=== PATIENT | male | born 1945 | race Caucasian/White ===

== ENCOUNTER 2016-09-06 12:45 | Observation (INO) | payer MEDICARE, BC ==
--- NOTE | ~2016-09-06 | CN ---
Consultation Report [facility] [address] [place]. [address] NAME: KATELYN GAMBINO JR : 43 STATUS : ADM Alex PAT#: [id number] AGE: 71 ADM/REG DATE : 09/06/16 MR#: [id number] REPORT SERV DATE: 09/06/16 DICTATED BY: VELASQUEZ ARGUETA DATE: 09/06/16 REPORT STATUS : Draft TRANSCRIBED BY: MODL DATE: 09/06/16 CARDIOLOGY CONSULTATION DATE OF CONSULTATION: 09/06/2016 REASON FOR CONSULTATION: Chest pain, possible syncope. HISTORY OF PRESENT ILLNESS: Mr. Gambino is a very pleasant 71-year-old male. We have been asked to see by the Hospitalist Service for evaluation of chest pain and a presyncopal episode. He has no established cardiovascular history, but does have hypertension and diabetes. He was hospitalized in 02/2016 for an episode of pancreatitis. He was working out with his in the gym this morning and apparently experienced a transient alteration of consciousness. Specifically, he became nonverbal and stared off to the side as his tried to gain his attention. He was placed in a seated position and never lost consciousness or posture based on his 's report, but she feels that he was altered for over 5 minutes without being verbal. She poured water on his head and then subsequently placed orange slices into his mouth thinking he was hypoglycemic. He eventually regained spontaneous speech and has very limited memory of these events. Shortly after arrival to the ER, he experienced some mild left-sided chest pain, which resolved spontaneously. We have been asked to see him in this context. He denies any palpitations, presyncope, or syncope previously. He was previously seen by Dr. Anderson for evaluation of left lower quadrant pain, apparently had a stress test that was unremarkable. He has no history of neurologic disease or seizure disorder. There was no loss of bowel or bladder function and no tonoclonic activity. He has never had a syncopal event prior. He has not had any anginal symptoms in the last several days, has not had any discomfort with activity. He admits that he was exerting himself more than usual during this morning. MEDICATIONS: Reviewed include aspirin, Coreg, vitamin D, vitamin B12, Benadryl, and Flonase. ALLERGIES: TO MORPHINE, HYDROCHLOROTHIAZIDE, VALSARTAN, AND TRULICITY. FAMILY HISTORY: Noncontributory. SOCIAL HISTORY: Rare alcohol use. No tobacco. No illicits. REVIEW OF SYSTEMS: Per HPI, otherwise, negative. PHYSICAL EXAMINATION: VITAL SIGNS: Heart rate 60, blood pressure 120/80, and respiratory rate 16. Consultation Report [facility] [address] [place] [address] NAME: KATELYN GAMBINO JR : 43 STATUS : ADM Alex PAT#: [id number] AGE: 71 ADM/REG DATE : 09/06/16 MR#: [id number] REPORT SERV DATE: 09/06/16 DICTATED BY: VELASQUEZ ARGUETA DATE: 09/06/16 REPORT STATUS : Draft TRANSCRIBED BY: DARCY DATE: 09/06/16 GENERAL: Appears comfortable. HEENT: Sclerae anicteric; mucous membranes moist. NECK: No JVD. Thyroid not tender or enlarged CARDIOVASCULAR: Regular rhythm with normal S1/S2. No murmurs, rubs, or gallop. PULMONARY: Lung cole CTA. ABDOMEN: Soft, nontender, no masses EXTREMITIES: Warm, no edema. NEUROLOGIC: Grossly without deficits LABS: Reviewed. Hemoglobin 13.3 and platelets 95. Creatinine 1.28. Troponin less than 0.02. Chest x-ray, unremarkable. EKG, sinus rhythm. No ST-segment abnormalities. IMPRESSION/RECOMMENDATIONS: 1. Transient alteration of consciousness: Etiology is unclear. Considerations include presyncope, absence seizure, hypoglycemia. None of these are highly suggested by the history and it is certainly likely that the patient's increased activity played some role. If he truly did have altered consciousness for 5 minutes, I question whether this was a neurologic event. His EKG and his initial troponin very reassuring. I do not hear any murmur on exam, but we can rule out any underlying structural heart disease with an echocardiogram and we will plan to do that tomorrow as we await the followup troponin. I will go and ask Neurology to evaluate him, but anticipate if his workup is negative, and there are no events on telemetry, then he can be discharged soon if there is no recurrence. Thank you for your consultation. We will follow with you. KALANI Velasquez Argueta MD / [id number] CC: Suhas Clarke Jr, MD Annesofie Dubeck-Brooks, M.D.
--- NOTE | ~2016-09-06 | CN ---
Consultation Report [facility] [address] [place]. [address] NAME: KATELYN GAMBINO JR : 43 STATUS : ADM Alex PAT#: [id number] AGE: 71 ADM/REG DATE : 09/06/16 MR#: [id number] REPORT SERV DATE: 09/07/16 DICTATED BY: LUCIE CROSS DATE: 09/07/16 REPORT STATUS : Draft TRANSCRIBED BY: DARCY DATE: 09/07/16 NEUROLOGY CONSULTATION DATE OF CONSULTATION: 09/07/2016 REASON FOR CONSULTATION: Syncopal episode. HOSPITALIST: Suhas Clarke Jr., M.D. HISTORY OF PRESENT ILLNESS: The patient is a 71-year-old male, who was out at the gym yesterday morning with his and they were doing a stability class. In this class, they do stretching, weightlifting, and aerobics. He and his have been in the class for approximately 55 minutes, when she looked back and noticed that her "did not look right." He was sitting on a mat and his face was pale, and he was not responding. He was staring off into space. She called his name four times and he did not respond. She got up off the mat, took her water and threw it in his face. He still did not respond. She called for "help from several other exercisers," got up and poured water on him. He still did not respond. He finally started to slowly respond after approximately five minutes. According to the , he did not demonstrate any tonic-clonic movement nor was he incontinent of urine and stool. He did not bite his tongue. When he finally did awake fully, he was fairly alert. He did not complain of being excessively drowsy nor did he napped throughout the day. He did state that he felt somewhat weak. When the patient was questioned about the event, he stated that he did not remember much about it; however prior to having his "episode," he did remember that he started to develop tunnel vision and that was all he remembered until his was waking him up. PAST MEDICAL HISTORY: Diabetes mellitus type 2, ileus, history of pancreatitis, hypertension, obesity, and history of tobacco abuse in the past. PAST SURGICAL HISTORY: Colectomy, cholecystectomy, appendectomy, prostatectomy, and neck fibroma removal. HOME MEDICATION LIST: Includes aspirin 81 mg daily, Coreg 50 mg twice a day, vitamin D3 1000 units daily, Coenzyme Q10 100 mg daily, vitamin B12 250 mcg daily, Benadryl 25 mg at bedtime, Flonase nasal spray one spray each nostril daily, Amaryl 4 mg daily, Xyzal 5 mg at bedtime, Mevacor 20 mg at bedtime, metformin 1000 mg twice a day, and fish oil 1200 mg daily. ALLERGIES: MORPHINE, HYDROCHLOROTHIAZIDE, NOVOCAINE, VALSARTAN, AND TRULICITY. SOCIAL HISTORY: The patient is . He has two children. 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 He is a remote smoker. He rarely drinks alcohol and denies use of illicit drugs. Consultation Report [address] [place]. [address] NAME: KATELYN GAMBINO JR : 43 STATUS : ADM Alex PAT#: [id number] AGE: 71 ADM/REG DATE : 09/06/16 MR#: [id number] REPORT SERV DATE: 09/07/16 DICTATED BY: LUCIE CROSS DATE: 09/07/16 REPORT STATUS : Draft TRANSCRIBED BY: DARCY DATE: 09/07/16 FAMILY HISTORY: The patient's mother at 76 from an aneurysm. His father at the age of 42 from heart disease. His son at the age of 46 from an DC. REVIEW OF SYSTEMS: See HPI for pertinent positives. PHYSICAL EXAMINATION: VITAL SIGNS: The patient is a 71-year-old male, who stands 5 foot 11 inches. He is currently afebrile. Heart rate 58, respiratory rate 16, O2 saturations on room air 96%, blood pressure 130/76. NEURO: He is alert, oriented x4, pleasant, communicates appropriately. Pupils are 3 mm. PERRLA. Cranial nerves 2 through 12 are intact except the patient reports slight diminished sensation on the left side of his face. He can move all extremities x4. Mlprdp-ai-dizy, no ataxia. Qnat-qg-xudl, no ataxia. There is no pronator drift. Upper extremity strength 5/5. Upper DTRs 1+ bilaterally. Reported slight diminished sensation on the left compared to the right. Lower extremity strength 4/5 bilaterally. Patellar reflexes 2+ bilaterally. Downgoing toes. Again, reported diminished sensation on the left compared to the right. The patient can get out of the bed. He has good locomotion. Gait without ataxia. Romberg negative. NECK: No carotid bruits, JVD, or thyromegaly. CHEST: Lung sounds are clear. CARDIAC: Regular rate and rhythm. LABORATORY DATA: CBC is normal. BMP relatively normal. Potassium 3.7. Cholesterol values are within normal range. A1c 6.8 and troponin negative x4. ASSESSMENT/PLAN: Episode of altered consciousness, etiology unknown. Differential diagnosis would include: 1. a. Orthostasis. At this point, the staff will check orthostatic vital signs every shift recording the heart rate and blood pressure lying, sitting, and standing. b. Hypoglycemia. Again, the staff will be checking blood sugars. c. An arrhythmia. The patient is on the cardiac monitor technician. Cardiology is managing this. d. Possible seizure, however, this is an atypical presentation. The patient will undergo an MRI of the brain, MRA of the head and neck, electroencephalogram, and additional lab work will be checked. Thank you again for including us in consultation. We will continue to follow with you. MARYANNE/DARCY Lucie Argueta Consultation Report [address] [address] NAME: KATELYN GAMBINO Aubrey MARINA : 43 STATUS : ADM Alex PAT#: [id number] AGE: 71 ADM/REG DATE : 09/06/16 MR#: [id number] REPORT SERV DATE: 09/07/16 DICTATED BY: LUCIE CROSS DATE: 09/07/16 REPORT STATUS : Draft TRANSCRIBED BY: MODL DATE: 09/07/16 KAITLYNN Cross / [id number] CC: Suhas Clarke Jr, MD Annesofie Dubeck-Brooks, M.D. William John Fritsch, Jr, MD
--- NOTE | ~2016-09-06 | DS ---
Discharge Summary [facility] [address] [place]. [address] NAME: KATELYN GAMBINO JR : 43 STATUS : DIS Alex PAT#: [id number] AGE: 71 ADM/REG DATE : 09/06/16 MR#: [id number] REPORT SERV DATE: 09/09/16 DICTATED BY: JAVY ARAMBULA DATE: 09/08/16 REPORT STATUS : Draft TRANSCRIBED BY: MODDavid DATE: 09/08/16 ADMISSION DATE: 09/06/2016 DISCHARGE DATE: 09/08/2016 PROCEDURES DONE: 1. On 09/06/2016, chest x-ray, no acute cardiopulmonary abnormality. 2. On 09/07/2016, MRA of the head shows normal intracranial MRA. 3. MRA of the neck, no significant brachiocephalic stenosis of the carotid, vertebral, or subclavian system identified. 4. On 09/07/2016, MRI of the brain, the patient had some small vascular injuries. The largest one involving left occipital/CLERK OPERATOR distribution. No acute infarct or bleed seen. Sinuses, inner ear structures appear grossly normal and symmetric. 5. On 09/08/2016, 2D echo: Normal left ventricular systolic function with calculated EF of 55 to 60%. Normal right ventricular chamber size and systolic function. No evidence of significant valvular regurgitation or stenosis. Agitated saline contrast study, had poor opacification, however, there is no clear evidence of atrial septal defect or patent foramen ovale. No previous study available. 6. On 09/08/2016, EEG obtained during awake and drowsy state may be considered within normal limits. No focal abnormalities, seizure activity, or seizure discharge was otherwise noted. CONSULTS: 1. Neurology with nurse practitioner, Melba Olivera. 2. Cardiology consult with Dr. Argueta. REASON FOR ADMISSION: Chest pain. HISTORY OF HOSPITAL STAY: A 71-year-old white male with past medical history of diabetes type 2, hypertension, history of ileus, history of pancreatitis, presenting with chest pain x1 day. The patient was initially doing a workout at the [facility] when he had a syncopal episode with a noted low blood sugar. The patient came to the ER for further evaluation and treatment. The patient was having chest pain status post syncopal episode. The patient was admitted for further evaluation and treatment of chest pain. Cardiology was consulted. A 2D echo was done which was within normal limits. In addition, cardiac enzymes, and EKG shows no significant changes. Cardiology was concerned whether or not this syncopal episode was seizure in nature. The patient was seen by Neurology for further evaluation and treatment. EEG was done which is normal. MRI and MRA of the head and neck were all within normal limits. Neurology felt that the patient's syncopal episode may be secondary to hypoglycemic episode. DISPOSITION: The patient is feeling fine with no complaint. ACTIVITIES: As tolerated. DIET: Diabetic. Discharge Summary [address] [address] NAME: KATELYN GAMBINO JR : 43 STATUS : DIS Alex PAT#: [id number] AGE: 71 ADM/REG DATE : 09/06/16 MR#: [id number] REPORT SERV DATE: 09/09/16 DICTATED BY: JAVY ARAMBULA DATE: 09/08/16 REPORT STATUS : Draft TRANSCRIBED BY: DARCY DATE: 09/08/16 INSTRUCTIONS UPON DISCHARGE: The patient is to follow up with primary care physician within two weeks' time. MEDICATIONS UPON DISCHARGE: 1. Aspirin 81 mg p.o. at bedtime. 2. Lovastatin 20 mg p.o. at bedtime. 3. Coreg 50 mg p.o. b.i.d. 4. Vitamin B12, 500 mcg p.o. at bedtime. 5. Vitamin D 1000 units p.o. daily. 6. Coenzyme Q10, 100 mg p.o. daily. 7. Flonase one spray each nostril daily. 8. Amaryl 4 mg p.o. daily. 9. Xyzal 5 mg p.o. at bedtime. 10.Fish oil 1200 mg p.o. daily. 11.Metformin 1000 mg p.o. b.i.d. 12.Benadryl 25 mg p.o. at bedtime. DIAGNOSES UPON DISCHARGE: 1. Chest pain, noncardiac. 2. Syncopal episode secondary to hypoglycemic episode. 3. Diabetes type 2. 4. Hypertension. FARIBA/DARCY Javy Arambula MD / [id number] CC: Suhas Clarke Jr, MD Annesofie Dubeck-Brooks, M.D.
--- NOTE | ~2016-09-06 | HP ---
History And Physical [place] [id number] [facility] [place]. [address] NAME: KATELYN GAMBINO JR : 43 STATUS : ADM Alex PAT#: [id number] AGE: 71 ADM/REG DATE : 09/06/16 MR#: [id number] REPORT SERV DATE: 09/06/16 DICTATED BY: JAVY ARAMBULA DATE: 09/06/16 REPORT STATUS : Draft TRANSCRIBED BY: MODDavid DATE: 09/06/16 DATE OF ADMISSION: 09/06/2016 REASON FOR ADMISSION: Chest pain. HISTORY OF PRESENT ILLNESS: A 71-year-old white male with past medical history of diabetes type 2, hypertension, history of ileus, and history of pancreatitis, presenting with chest pain x1 day. Apparently, the patient was with his today at the [facility] doing exercise. Apparently, 50 minutes into the workout, the patient had a syncopal episode. The who was at the time with them tried to wake him up but could not. The initially thought the patient could be having low blood sugar. He was given tangerines, orange juice, and glucagon. The patient's blood sugar increased to 211 by the time it was checked. Previously before he went to workout, his blood sugar was 154 prior to the exercise. Other than the syncopal episode, the patient had chest pain that was sharp in character with no radiation. Chest pain intensity was 6/10 with sudden in onset that started on the left side of his chest toward the midline. Nothing made the chest pain better or worse. The patient denies any nausea, vomiting, shortness of breath, cough, or palpitation. PAST MEDICAL HISTORY: As above. MEDICATIONS: Unfortunately at this time, the medication list has not been processed yet. ALLERGIES: UNKNOWN. SOCIAL HISTORY: Nonsmoker. Nondrinker. FAMILY HISTORY: Significant for coronary artery disease, diabetes, and hypertension. REVIEW OF SYSTEMS: A 10-point review of systems conducted which were negative except for the above complaints. PHYSICAL EXAMINATION: VITAL SIGNS: Temperature 98.5, pulse of 68, respiratory rate 24, blood pressure 120/69, and O2 saturation 97% on room air. HEENT: Head and neck normocephalic, atraumatic. CARDIOVASCULAR: S1, S2. Regular rate and rhythm. Chest pain nonreproducible on palpation. LUNGS: Good air entry. No wheeze, rales, or rhonchi. Trachea midline. ABDOMEN: Soft, nontender, nondistended. Obese. EXTREMITIES: No clubbing, cyanosis, or edema. NEUROLOGIC: Awake, alert, and oriented x3. Cranial nerves 2 through 12 grossly intact. LABORATORY DATA: Sodium 137, potassium 4.6, chloride 101, bicarb 26, BUN 25, creatinine 1.28, glucose 108, GFR 64, calcium 9.1, total protein 7.4, albumin 3.6, globulin 3.8, total bilirubin 0.8, alkaline phosphatase 53, ALT 41, AST 70. Troponin 0.02. WBC 5.7, hemoglobin 13.3, hematocrit 9.6, and platelets 95. EKG shows normal sinus rhythm at 66 beats per minute. No gross ST elevation or depression appreciated. History And Physical [address] [address] NAME: KATELYN GAMBINO JR : 43 STATUS : ADM Alex PAT#: [id number] AGE: 71 ADM/REG DATE : 09/06/16 MR#: [id number] REPORT SERV DATE: 09/06/16 DICTATED BY: JAVY ARAMBULA DATE: 09/06/16 REPORT STATUS : Draft TRANSCRIBED BY: MODDavid DATE: 09/06/16 Chest x-ray shows no acute infiltrates. ASSESSMENT AND PLAN: 1. Chest pain. Rule out myocardial infarction. Given the fact that the patient was doing workup prior to his admission and then having a syncopal episode, questionable if this patient is having an MA. We will do cardiac enzymes as well as do a cardiac consult for further evaluation since the patient is high risk. The patient's ZEHRA score is between 3 to 4. In the meantime, we will start the patient on aspirin. 2. Diabetes type 2. The patient is allergic to Trulicity. We will also hold the patient's metformin. We will continue the patient's glyburide and have sliding scale level 2 check blood sugar a.c. and bedtime and check HbA1c and lipid profile. 3. Hypertension. Continue Coreg and have hydralazine p.r.n. for systolic greater than 160. 4. Deep venous thrombosis prophylaxis. We will give the patient heparin. FARIBA/DARCY Javy Arambula MD / [id number] CC: Suhas Clarke Jr, MD Annesofie Dubeck-Brooks, M.D.
--- NOTE | ~2016-09-06 | EEG ---
Electroencephalogram [facility] [address] [place]. [address] NAME: KATELYN GAMBINO JR : 43 STATUS : ADM Alex PAT#: [id number] AGE: 71 ADM/REG DATE : 09/06/16 MR#: [id number] REPORT SERV DATE: 09/07/16 DICTATED BY: DATE: REPORT STATUS : Draft TRANSCRIBED BY: MODL DATE: 09/07/16 CLINICAL INDICATIONS: Loss of consciousness episode, concern for seizure. DESCRIPTION: This EEG was performed using 10/20 electrode placement system. During the EEG study, symmetric background activity was noted with predominant occipital rhythm of roughly 10 hertz. Photic stimulation was performed with appropriate driving response. Hyperventilation was not performed secondary to the patient's underlying medical condition. During the EEG study, the patient achieved drowsy state. No focal abnormalities, seizure activity, or seizure discharge was otherwise noted. INTERPRETATION: This EEG study obtained during awake and drowsy state may be considered within normal limits. No focal abnormalities, seizure activity, or seizure discharge was otherwise noted. Clinical correlation is recommended. [facility]/MODL Marshall Muniz MD / [id number] CC: Suhas Clarke Jr, MD Annesofie Dubeck-Brooks, M.D.
[2016-09-06 11:34] LABS: BASOPHILS 0.2 %; BASOPHILS ABSOLUTE 0.01 10/3/uL (0.0-0.16); EOSINOPHILS 4.4 %; EOSINOPHILS ABSOLUTE 0.25 10/3/uL (0.0-0.53); ER CBC TAT 0 Hrs 03 Mins; HEMOGLOBIN 13.3 g/dL (13.6-17.8); IMMATURE GRANULOCYTES 0.5 %; IMMATURE GRANULOCYTES ABSOLUTE 0.03 10/3/uL (0.0-0.11); LYMPHOCYTES 22.8 %; LYMPHOCYTES ABSOLUTE 1.29 10/3/uL (0.67-4.30); MEAN CORPUS HGB CONC 33.6 g/dL (32.0-36.0); MEAN CORPUSCULAR HEMOGLOB 28.7 pg (26.0-34.0); MEAN CORPUSCULAR VOLUME 85.3 fL (80-100); MEAN PLATELET VOLUME 11.6 fL (9.2-13.0); MONOCYTES 10.4 %; MONOCYTES ABSOLUTE 0.59 10/3/uL (0.21-1.20); NEUTROPHILS 61.7 %; RED CELL COUNT 4.64 10/6/uL (4.7-6.1); WHITE BLOOD CELLS 5.7 10/3/uL (4.5-10.5)
[2016-09-06 11:36] LABS: HEMATOCRIT 39.6 % (40.0-51.0); MANUAL DIFF NO %; PLATELET COUNT 95 10/3/uL (150-400)
[2016-09-06 11:41] LABS: INTERNATIONAL NORMAL RATI 1.1 UNITS (-); PROTIME (NOT ORD) 14.5 SEC (12.0-14.5)
[2016-09-06 11:53] LABS: CALCIUM, SERUM 9.1 MG/DL (8.5-10.4); CHLORIDE, SERUM 101 MMOL/L (96-112); CO2 (CARBON DIOXIDE) 26 MMOL/L (24-34); CREATININE 1.28 MG/DL (0.70-1.30); GFR AFRICAN AMERICAN 64 ML/MIN (>=60); GFR NON AFRICAN AMERICAN 56 ML/MIN (>=60); SGOT(AST) 20 U/L (5-40); SGPT(ALT) 41 U/L (5-65); SODIUM, SERUM 137 MMOL/L (135-148); TOTAL BILIRUBIN 0.8 MG/DL (0-1.2); TOTAL PROTEIN 7.4 G/DL (6.0-8.5); TROPONIN I <0.02 NG/ML (<0.05)
[2016-09-06 11:54] LABS: POTASSIUM, SERUM 4.6 MMOL/L (3.5-5.3)
[2016-09-06 11:55] LABS: A/G RATIO 0.9 (0.7-1.9); ALBUMIN 3.6 G/DL (3.5-5.0); ALKALINE PHOSPHATASE 53 U/L (45-117); BUN (BLOOD UREA NITROGEN) 25 MG/DL (6-23); GLOBULIN 3.8 G/DL (2.5-4.1); GLUCOSE, SERUM 198 MG/DL (60-99)
[~2016-09-06 12:45] MED LIST: AMARYL1 MG PO; ASAB PO; CO Q-10100 MG PO; COREG12 PO; COREG6; FISH OIL1200 MG PO; GLUCPH PO; MEVACOR PO; PRILO PO; VERAMYST27.5 MCG NAS; VITAMIN B-121000 MC1 PO; XYZAL5 MG PO
[2016-09-06] MEDS ORDERED: AMARYL4 PO (14:21)
[2016-09-06] MEDS ORDERED: MEVACOR PO (14:21)
[2016-09-06] MEDS ORDERED: GLUCOPHAGE1000 MG PO (14:21)
[2016-09-06] MEDS ORDERED: COREG25 PO (14:21)
[2016-09-06] MEDS ORDERED: XYZAL5 MG PO (14:21)
[2016-09-06] MEDS ORDERED: FLONASE NAS (14:22)
[2016-09-06] MEDS ORDERED: B12250T PO (14:22)
[2016-09-06] MEDS ORDERED: ASAB PO (14:22)
[2016-09-06] MEDS ORDERED: CO Q-10100 MG PO (14:22)
[2016-09-06] MEDS ORDERED: BEN25 PO (14:23)
[2016-09-06] MEDS ORDERED: FISH OIL1200 MG PO (14:23)
[2016-09-06] MEDS ORDERED: VITAMIN D1000 UNI1 PO (14:24)
[2016-09-06 17:46] LABS: TROPONIN I <0.02 NG/ML (<0.05)
[2016-09-06 17:52] LABS: CPK 72 U/L (0-200)
[2016-09-06 23:58] LABS: CK-MB 0.8 NG/ML; CPK 86 U/L (0-200); TROPONIN I <0.02 NG/ML (<0.05)
[2016-09-07 05:40] LABS: BASOPHILS 0.2 %; BASOPHILS ABSOLUTE 0.01 10/3/uL (0.0-0.16); EOSINOPHILS 4.8 %; EOSINOPHILS ABSOLUTE 0.24 10/3/uL (0.0-0.53); HEMATOCRIT 38.2 % (40.0-51.0); HEMOGLOBIN 12.6 g/dL (13.6-17.8); IMMATURE GRANULOCYTES 0.2 %; IMMATURE GRANULOCYTES ABSOLUTE 0.01 10/3/uL (0.0-0.11); LYMPHOCYTES 31.4 %; LYMPHOCYTES ABSOLUTE 1.57 10/3/uL (0.67-4.30); MEAN CORPUSCULAR HEMOGLOB 28.5 pg (26.0-34.0); MEAN CORPUSCULAR VOLUME 86.4 fL (80-100); MEAN PLATELET VOLUME 10.2 fL (9.2-13.0); MONOCYTES 14.8 %; MONOCYTES ABSOLUTE 0.74 10/3/uL (0.21-1.20); NEUTROPHILS 48.6 %; NEUTROPHILS ABSOLUTE 2.43 10/3/uL (2.02-8.40); RBC DISTRIBUTION WIDTH 14.6 % (12.0-16.0); RED CELL COUNT 4.42 10/6/uL (4.7-6.1)
[2016-09-07 05:47] LABS: MANUAL DIFF NO %; PLATELET COUNT 142 10/3/uL (150-400)
[2016-09-07 05:55] LABS: A/G RATIO 0.9 (0.7-1.9); ALBUMIN 3.4 G/DL (3.5-5.0); ALKALINE PHOSPHATASE 48 U/L (45-117); CALCIUM, SERUM 9.1 MG/DL (8.5-10.4); CHLORIDE, SERUM 103 MMOL/L (96-112); CO2 (CARBON DIOXIDE) 27 MMOL/L (24-34); CPK 75 U/L (0-200); CREATININE 0.98 MG/DL (0.70-1.30); GFR AFRICAN AMERICAN 89 ML/MIN (>=60); GFR NON AFRICAN AMERICAN 77 ML/MIN (>=60); GLOBULIN 3.8 G/DL (2.5-4.1); PHOSPHORUS, SERUM 4.2 MG/DL (2.5-4.5); POTASSIUM, SERUM 3.7 MMOL/L (3.5-5.3); SGOT(AST) 16 U/L (5-40); SGPT(ALT) 33 U/L (5-65); SODIUM, SERUM 141 MMOL/L (135-148); TOTAL BILIRUBIN 0.8 MG/DL (0-1.2); TOTAL PROTEIN 7.2 G/DL (6.0-8.5); TRIGLYCERIDE 183 MG/DL (< 150); TROPONIN I <0.02 NG/ML (<0.05)
[2016-09-07 05:57] LABS: BUN (BLOOD UREA NITROGEN) 18 MG/DL (6-23); CHOL/HDL RATIO(NOT ORDER) 2.7 (0-5); CHOLESTEROL 117 MG/DL (< 200); CK-MB 0.7 NG/ML; GLUCOSE, SERUM 97 MG/DL (60-99); HDL CHOLESTEROL 43 MG/DL (> 39); LDL CHOLESTEROL 38 MG/DL (< 130); NON-HDL CHOLESTEROL 74 MG/DL (< 160)
[2016-09-07 13:25] LABS: ALBUMIN 3.5 G/DL (3.5-5.0); ALKALINE PHOSPHATASE 53 U/L (45-117); DIRECT BILIRUBIN 0.1 MG/DL (0.0-0.4); FOLATE 11.5 NG/ML (>5.2); INDIRECT BILIRUBIN(NOT ORDER) 0.5 MG/DL (0.1-0.9); SGOT(AST) 23 U/L (5-40); SGPT(ALT) 37 U/L (5-65); TOTAL BILIRUBIN 0.6 MG/DL (0-1.2); TOTAL PROTEIN 7.6 G/DL (6.0-8.5)
[2016-09-07 14:00] LABS: PROCALCITONIN <0.05 ng/mL (<0.5)
== END 2016-09-08 15:25 | disposition home or self-care (01) ==
LOC: ER 12:45 → CDU1 13:58 → CDU2 14:05
PROVIDERS: Emergency Medicine; Hospitalist; Nurse Practitioner
DX: R07.89 Other chest pain (principal); I10 Essential (primary) hypertension; E11.649 Type 2 diabetes mellitus with hypoglycemia without coma; Z82.49 Family history of ischemic heart disease and other diseases of the circulatory system; Z83.3 Family history of diabetes mellitus; Z90.49 Acquired absence of other specified parts of digestive tract; Z90.79 Acquired absence of other genital organ(s); Z98.890 Other specified postprocedural states; Z87.891 Personal history of nicotine dependence; Z88.5 Allergy status to narcotic agent; Z88.8 Allergy status to other drugs, medicaments and biological substances; Z79.82 Long term (current) use of aspirin; Z79.51 Long term (current) use of inhaled steroids; Z79.84 Long term (current) use of oral hypoglycemic drugs; Z79.899 Other long term (current) drug therapy
CPT/HCPCS: 70544; 70548; 70551; 71010; 80053; 80061; 80076; 82140; 82248; 82306; 82533; 82550; 82553; 82607; 82746; 82962; 83036; 83735; 84100; 84145; 84484; 85025; 85610; 93005; 93306; 95816; 96372; 99285; A9270-GY; A9577; G0378